=== PATIENT | male | born 1965 | race American Indian/Alaskan Native ===

== ENCOUNTER 2017-06-17 14:27 | Emergency (ER) | payer OTHER ==
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
--- NOTE | 2017-06-17 15:16 | XRay Report ---
LUMBOSACRAL SPINE, 3 VIEWS: History: Back pain Findings: The vertebral bodies, disk spaces and posterior elements are intact. No compression deformity or malalignment. The SI joints are symmetric and unremarkable. Impression: 1. No evidence for acute injury to the lumbar spine.
[2017-06-17] MEDS ORDERED: MOTRIN PO ONE (18:35)
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
[2017-06-17 19:30] VITALS: BP 133/93
== END 2017-06-17 19:31 | disposition home or self-care (01) ==
LOC: ED 14:27
DX: S39.012A Strain of muscle, fascia and tendon of lower back, initial encounter (principal); F17.200 Nicotine dependence, unspecified, uncomplicated; V49.59XA Passenger injured in collision with other motor vehicles in traffic accident, initial encounter; Y92.488 Other paved roadways as the place of occurrence of the external cause; Y93.89 Activity, other specified; Y99.9 Unspecified external cause status
CPT/HCPCS: 72100; 99283

== ENCOUNTER 2021-12-01 20:54 | Emergency (ER) | payer SELFPAY ==
[2021-12-02 01:10] LABS: Basophils % (Auto) 0.4 % (0.0-1.8); Eosinophils # (Auto) 0.4 K/mm3 (0.0-0.4); Eosinophils % (Auto) 7.3 % (0.0-4.3); Hematocrit 38.5 % (35.5-45.6); Hemoglobin 13.4 gm/dl (11.8-15.2); Lymphocytes # (Auto) 2.1 K/mm3 (1.2-5.4); Mean Corpuscular HGB Conc 35 % (32-34); Mean Corpuscular Volume 93 fl (84-94); Monocytes # (Auto) 0.4 K/mm3 (0.0-0.8); Monocytes % (Auto) 8.3 % (0.0-7.3); Platelet Count 220 K/mm3 (140-440); Red Blood Count 4.12 M/mm3 (3.65-5.03); Red Cell Distribution Width 13.5 % (13.2-15.2)
[2021-12-02 01:27] LABS: Alanine Aminotransferase 7 units/L (7-56); BUN/Creatinine Ratio 14; Blood Urea Nitrogen 17 mg/dL (9-20); Hemolysis Index 7
--- NOTE | 2021-12-02 02:12 | Cat Scan Report ---
CT ABDOMEN AND PELVIS WITH CONTRAST INDICATION / CLINICAL INFORMATION: llq pain and swelling. TECHNIQUE: Axial CT images were obtained through the abdomen and pelvis after 100 cc Omnipaque [address] scans at this location are performed using CT dose reduction for ALARA by means of automated exposure control. COMPARISON: None available. FINDINGS: LOWER CHEST: No significant abnormality of the imaged chest. LIVER: Small hypodense lesions within the liver likely reflects cysts or hemangiomas. Further evaluat ion not possible. GALLBLADDER: No significant abnormality. BILE DUCTS: No significant abnormality. SPLEEN: No significant abnormality. PANCREAS: No significant abnormality. ADRENALS: No significant abnormality. RIGHT KIDNEY / URETER: No significant abnormality. LEFT KIDNEY / URETER: No significant abnormality. STOMACH / DUODENUM / SMALL BOWEL: No significant abnormality. COLON: No significant abnormality. APPENDIX: No significant abnormality. PERITONEUM: No free air or free fluid are present within the abdomen or pelvis. LYMPH NODES: No significant adenopathy. AORTA / ARTERIES: No significant abnormality. IVC / VEINS: No significant abnormality. URINARY BLADDER: No significant abnormality. REPRODUCTIVE ORGANS: No significant abnormality. ADDITIONAL ABDOMINAL/PELVIC FINDINGS: None. SKELETAL SYSTEM: No significant abnormality. IMPRESSION: 1. No imaging findings to suggest etiology of the provided symptoms. Signer Name: Irving Martinez II, MD Signed: 12/02/2021 2:08 AM Workstation Name: [id number]
[2021-12-02 04:37] VITALS: BP 130/89
== END 2021-12-02 04:35 | disposition home or self-care (01) ==
LOC: ED 20:54
DX: R10.9 Unspecified abdominal pain (principal); Z53.21 Procedure and treatment not carried out due to patient leaving prior to being seen by health care provider
CPT/HCPCS: 36415; 74177; 80053; 83690; 85025; Q9967; 99284